=== PATIENT | female | born 1980 | race Caucasian/White ===

== ENCOUNTER 2019-10-16 17:41 | Emergency (ER) | payer OTHER ==
[~2019-10-16] VITALS: Ht 162.6 cm; Wt 74.0 kg
--- NOTE | 2019-10-16 18:55 | RAD ---
Exam: Left hand 3 views INDICATION: Third finger trauma TECHNIQUE: Frontal, lateral and oblique views of the left hand Comparisons: None FINDINGS: Severely comminuted mildly displaced fracture of the proximal phalanx third digit. Mild soft tissue laceration noted. Joint spaces are well-maintained. Joint spaces are well-maintained. IMPRESSION: Severely comminuted mildly displaced fracture of the proximal phalanx third digit. Electronically signed by: Melecio Reyes MD (10/16/2019 6:52 PM) [id number]
--- NOTE | 2019-10-16 19:18 | PHYS DOC ---
Past Medical History Past Medical History: No Pertinent History Past Surgical History: Appendectomy Additional Past Surgical Histo: c-sec x2 General Adult EDM: Chief Complaint: HAND PROBLEM HPI: HPI: Patient is a 39 year old female who presents with left third finger pain. Patient reports that she was standing on a folding chair when the chair started to fold underneath her and she put her left hand down to catch herself and her finger got stuck in the chair and she fell onto it. Patient reports that when she looked at her finger it was bent back the other way. Patient denies any current pain. Event occurred just prior to ED arrival. Patient is reporting swelling to the left third finger and she does have 2 lacerations to her left third finger. Patient denies pain at this time she reports that it just feels like her finger needs to pop. Nothing makes pain better or worse. There is no radiation of pain. Patient did not take anything for pain prior to arrival. Patient is unsure when her last tetanus shot was. Patient reports her last meal was at approximately 1230 this afternoon she ate a BLT, at about 6 PM she had a sip of water. Review of Systems: Review of Systems: Constitutional: Denies fever or chills. [] Musculoskeletal: see HPI [] Integument: see HPI [] Neurologic: Denies headache, focal weakness or sensory changes. [] Psychiatric: Denies depression or anxiety. [] Heart Score: Risk Factors: Risk Factors: DM, Current or recent (<one month) smoker, HTN, HLP, family history of CAD, obesity. Risk Scores: Score 0 - 3: 2.5% MACE over next 6 weeks - Discharge Home Score 4 - 6: 20.3% MACE over next 6 weeks - Admit for Clinical Observation Score 7 - 10: 72.7% MACE over next 6 weeks - Early Invasive Strategies Physical Exam: PE: Constitutional: Well developed, well nourished, no acute distress, non-toxic appearance. [] HENT: Normocephalic, atraumatic, bilateral external ears normal, nose normal. [] Eyes: PERRLA, EOMI, conjunctiva normal, no discharge. [] Neck: Normal range of motion, no stridor. [] Cardiovascular:Heart rate regular rhythm Lungs & Thorax: Respirations even and unlabored, no retractions, no respiratory distress Skin: Warm, dry, no erythema, no rash, lacerations over the proximal phalanx of the left third finger: 1cm laceration to lateral palmar aspect and 3 cm lac to medial palmar aspect, no visible foreign bodies, no active bleeding at this time, cap refill less than 2 seconds [] Extremities: Left hand third digit: no cyanosis, no clubbing, swelling and tenderness to PIP and proximal phalanx, 2+ radial pulse, sensation intact, limited range of motion testing due to injury Neurologic: Alert and oriented X 3, no focal deficits noted, . [] Psychologic: Affect normal, judgement normal, mood normal. [] EKG: EKG: [] Radiology/Procedures: Radiology/Procedures: PROCEDURE: HAND LEFT 3V Exam: Left hand 3 views INDICATION: Third finger trauma TECHNIQUE: Frontal, lateral and oblique views of the left hand Comparisons: None FINDINGS: Severely comminuted mildly displaced fracture of the proximal phalanx third digit. Mild soft tissue laceration noted. Joint spaces are well-maintained. Joint spaces are well-maintained. IMPRESSION: Severely comminuted mildly displaced fracture of the proximal phalanx third digit. Laceration Repair by me: Anesthesia: 1% lidocaine and 0.5% bupivacaine digital block; 1% lidocaine locally after block failed Location: Third digit of left hand Tendon/Joint/Nerves: Crepitus of the proximal phalanx no visible tendon injury Foreign body: None detected after copious irrigation and exploration, the wound was irrigated with 670 milliliters of normal saline and cleansed with chlorhexidine scrub Technique: 6 simple Interrupted Sutures to the medial aspect laceration with 4-0 Ethilon; 2 simple interrupted sutures to the lateral aspect laceration with 4-0 Ethilon Complexity: No subcutaneous sutures/mucosal repair/edge excision Post Closure Length: medial wound 3 cm; lateral wound 1 cm Patient's bleeding was easily controlled in the department and there is no indication of anemia. No evidence of compartment syndrome, neurologic injury, vascular injury, tendon laceration, or foreign body. Patient is appropriate for outpatient follow up. 48 hour wound check. [] Course & Med Decision Making: Course & Med Decision Making Pertinent Labs and Imaging studies reviewed. (See chart for details) Patient is a 39-year-old female who presented to the emergency room with complaints of a traumatic injury to the third digit of her left hand when she accidentally closed her hand in a folding chair this evening. X-ray revealed Severely comminuted mildly displaced fracture of the proximal phalanx third digit. Images were clouded over to and the transfer team was notified for orthopedic hand surgeon consult. 1932-Per Natalya at transfer center she has spoke with orthopedics clinical applications specialist regarding this case and the recommendation is that the wound is washed, closed, and splinted. Pt can follow up outpatient with orthopedics per Dr. Rodney Gonzáles. I Advised that 1 gm of ancef was given IM. Will prescribe pain medication and an antibiotic. Dragon Disclaimer: Dragon Disclaimer: This electronic medical record was generated, in whole or in part, using a voice recognition dictation system. Departure Departure Impression: Primary Impression: Open fracture of phalanx of digit of hand with malunion Additional Impression: Need for Tdap vaccination Disposition: 01 HOME, SELF-CARE Condition: STABLE Referrals: NO PCP (PCP) Patient Instructions: Finger Fracture (Phalangeal)-Sports[employer], VIS, Tetanus, Diphtheria (Td); Tetanus, Diphtheria, Pertussis (Tdap) - CDC Additional Instructions: Fill prescription(s) and use as directed. Leave the dressing that was applied on and wear the splint that was placed until follow up appointment with orthopedic hand surgeon. Call orthopedics at [phone] to schedule your appointment. Return to the ER if your symptoms worsen or you develop a fever. Scripts Oxycodone/Apap 5-325 (PERCOCET 5-325 MG TABLET ) 1 Each Tablet 1 TAB PO QIDPRN PRN for PAIN MDD 4 Tablet(s) for 5 Days, #20 TAB 0 Refills Prov: SANCHEZ MACK APRN 10/16/19 Cephalexin (KEFLEX) 500 Mg Capsule 500 MG PO QID for 10 Days, #40 CAP 0 Refills Prov: SANCHEZ MACK APRN 10/16/19 Justicifation of Admission Dx: Justifications for Admission: Justification of Admission Dx: N/A SANCHEZ MACK APRN Oct 16, 2019 19:18
[2019-10-16] MEDS ORDERED: ceFAZolin IM 1 GM VIAL IM ONE (20:00)
[2019-10-16] MEDS ORDERED: BUPIVACAINE MPF 0.5% 30 ML VIAL. INJ ONE (20:00)
[2019-10-16] MEDS ORDERED: LIDOCAINE WITH 8.4% SOD BICARB 3 ML DISP.SYRIN. INJ ONE (20:00)
[2019-10-16] MEDS ORDERED: HYDROcodone/APAP 7.5/325MG 1 TAB TABLET PO ONE (21:15)
[2019-10-16] MEDS ORDERED: LIDOCAINE 1% PF 2 ML VIAL. INJ ONE (22:30)
[2019-10-16] MEDS ORDERED: OXYC1TAB15 PO ×2 (23:41→23:50)
[2019-10-16] MEDS ORDERED: CEPH-264 PO (23:41)
[2019-10-16 23:43] VITALS: BP 127/65
[2019-10-16] MEDS ORDERED: DIPH,PERTUSS(ACELL),TET VAC/PF 0.5 ML SYRINGE. VAX IM ONE (23:45)
== END 2019-10-16 23:53 | disposition home or self-care (01) ==
LOC: ER 17:41
DX: S62.613B Displaced fracture of proximal phalanx of left middle finger, initial encounter for open fracture (principal); W23.0XXA Caught, crushed, jammed, or pinched between moving objects, initial encounter; Y93.89 Activity, other specified; Y92.89 Other specified places as the place of occurrence of the external cause; Y99.8 Other external cause status
CPT/HCPCS: 29130; 73130; 90471; 90715; 96372; 99284; J0690; 12002